=== PATIENT | male | born 1955 | race Caucasian/White ===

== ENCOUNTER 2017-01-24 14:13 | Emergency (ER) | payer OTHER, BC ==
[~2017-01-24] VITALS: Ht 177.8 cm; Wt 100.0 kg
[2017-01-24 14:15] VITALS: BP 139/86; PULSE 86; RESP 16; TEMP 97.9; O2SAT 97
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
[2017-01-24 14:34] VITALS: BP 153/89; PULSE 85; RESP 20; O2SAT 97
[2017-01-24] MEDS ORDERED: ROSU10 PO (14:38)
[2017-01-24] MEDS ORDERED: LISI10TA3 PO (14:38)
[2017-01-24] MEDS ORDERED: ASPI81CH CHEW (14:38)
[2017-01-24] MEDS ORDERED: METF500T PO (14:38)
[2017-01-24] MEDS ORDERED: LEXA10TA PO (14:38)
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
[2017-01-24] MEDS ORDERED: NORC5TAB PO (16:39)
[2017-01-24 16:42] VITALS: BP 132/80
[2017-01-24] MEDS ORDERED: ACETAMINOPHEN/HYDROcodone 325 MG/5 MG TAB PO ONE (16:45)
== END 2017-01-24 17:08 | disposition home or self-care (01) ==
LOC: NEPE 14:13
DX: S09.90XA Unspecified injury of head, initial encounter (principal); M25.571 Pain in right ankle and joints of right foot; S80.212A Abrasion, left knee, initial encounter; S00.01XA Abrasion of scalp, initial encounter; E11.9 Type 2 diabetes mellitus without complications; I10 Essential (primary) hypertension; E78.5 Hyperlipidemia, unspecified; E78.00 Pure hypercholesterolemia, unspecified; K21.9 Gastro-esophageal reflux disease without esophagitis; Z95.5 Presence of coronary angioplasty implant and graft; Z79.82 Long term (current) use of aspirin; V29.9XXA Motorcycle rider (driver) (passenger) injured in unspecified traffic accident, initial encounter; Y93.I9 Activity, other involving external motion; Y92.9 Unspecified place or not applicable; Y99.8 Other external cause status
CPT/HCPCS: 70450; 73600